=== PATIENT | female | born 1955 | race Caucasian/White ===

== ENCOUNTER 2016-08-23 17:10 | Inpatient (IN) | payer BC ==
[~2016-08-23] VITALS: Ht 170.2 cm; Wt 74.8 kg
--- NOTE | 2016-08-23 17:17 | NUR ---
bib ra from home for fall into swimming pool, (empty), neck, and back pain,+ CALOR. Placed on monitor. awaiting md order
[2016-08-23] MEDS ORDERED: LORAZEPAM 1 MG TABLET PO ONE (17:30)
--- NOTE | 2016-08-23 17:30 | NUR ---
PT TAKEN TO CT VIA HAZEL
[2016-08-23] MEDS ORDERED: LORAZEPAM 1 MG TABLET ONE (17:52)
[2016-08-23] MEDS ORDERED: SERT100T PO (18:34)
[2016-08-23] MEDS ORDERED: IV SET PRIMARY PUMP SET 1 EA INFUS.SET MC ONE (18:43)
[2016-08-23] MEDS ORDERED: ONDANSETRON HCL/PF 4 MG/2 ML VIAL ONE ×2 (18:43→19:43)
[2016-08-23] MEDS ORDERED: IV NS 0.9% 1,000 ML ONE (18:43)
[2016-08-23] MEDS ORDERED: MORPHINE SULFATE INJ 4 MG/ML DISP.SYRIN ONE (18:43)
--- NOTE | 2016-08-23 18:45 | NUR ---
giovanni #[id number] iv access. blood sample collected sent to lab
[2016-08-23 18:47] LABS: BASOPHILS # (AUTO) 0.2 /CMM (0.0-0.2); BASOPHILS % (AUTO) 1.6 % (0.0-2.0); EOSINOPHILS # (AUTO) 0.1 /CMM (0.0-0.7); EOSINOPHILS % (AUTO) 0.4 % (0.0-6.0); HEMATOCRIT 41 % (33-45); HEMOGLOBIN 13.6 g/dL (11.5-14.8); LYMPHOCYTES # (AUTO) 1.2 /CMM (0.8-4.8); LYMPHOCYTES % (AUTO) 9.3 % (20.0-44.0); MEAN CORPUSCULAR HEMOGLOBIN 31 PG (26.0-33.0); MEAN CORPUSCULAR HGB CONC 33 g/dl (31.0-36.0); MEAN CORPUSCULAR VOLUME 91 fL (82-100); MONOCYTES # (AUTO) 0.5 /CMM (0.1-1.30); NEUTROPHILS # (AUTO) 10.6 /CMM (1.8-8.9); NEUTROPHILS % (AUTO) 84.7 % (43.0-81.0); PLATELET COUNT (AUTO) 248 /CMM (150-450); RDW COEFFICIENT OF VARIATION 12.5 (11.5-15.0); RED BLOOD CELL COUNT(AUTO) 4.47 MIL/uL (4.0-5.2); WHITE BLOOD COUNT (AUTO) 12.6 K/uL (4.3-11.0)
[2016-08-23 18:56] LABS: CREATININE 0.9 mg/dL (0.6-1.3); POTASSIUM 3.6 mmol/L (3.5-5.1)
[2016-08-23 19:00] LABS: INR 0.91 (0.87-1.13); PROTHROMBIN TIME 9.5 SECS (9.5-12.7)
[2016-08-23] MEDS ORDERED: ONDANSETRON HCL/PF 4 MG/2 ML VIAL IVP ONE (19:00)
[2016-08-23] MEDS ORDERED: IV NS 0.9% 1,000 ML BAG IV ONE (19:00)
[2016-08-23] MEDS ORDERED: MORPHINE SULFATE INJ 2 MG/ML DISP.SYRIN IV ONE (19:00)
[2016-08-23 19:02] LABS: ALBUMIN 3.9 g/dL (3.4-5.0); BILIRUBIN,DIRECT 0.1 mg/dL (0.0-0.2); BILIRUBIN,TOTAL 0.3 mg/dL (0.2-1.0); TOTAL PROTEIN, SERUM 7.3 g/dL (6.4-8.2)
--- NOTE | 2016-08-23 19:02 | NUR ---
TEXTED DR. MEYERS FOR MRI APPROVAL.
[2016-08-23] MEDS ORDERED: HYDROMORPHONE 1 MG/1 ML DISP.SYRIN ONE (19:43)
[2016-08-23] MEDS ORDERED: ONDANSETRON HCL/PF 4 MG/2 ML VIAL IV ONE (20:00)
[2016-08-23] MEDS ORDERED: HYDROMORPHONE 1 MG/1 ML DISP.SYRIN IV ONE (20:00)
--- NOTE | 2016-08-23 20:22 | NUR ---
GAVE REPORT TO RAINER PRADHAN [facility] ROOM 306-[address] L[address] FRA[address] CARVAJAL ADMITTING.
--- NOTE | 2016-08-23 20:30 | NUR ---
MS RN ADMITTING NOTE RECEIVED PT COMING FROM ER VIA GURNEY, ADMITTED DUE TO LUMBAR FRACTURE, PT RECEIVED DILAUDID IN ER AND WAS EFFECTIVE CONTROLLING PAIN, FAMILY IS AT BED SIDE, MRI TO BE DONE SHORTLY, PT HAS A DENTAL IMPLANT BUT ACCORDING TO INSTRUCTOR KNITTING IT IS NOT A PROBLEM WHEN DOING MRI, CHECK LIST COMPLETED AND SIGNED, AWAITING FOR PRODUCT SALES ENGINEER, SAFETY MEASURES WILL BE MAINTAINED AT ALL TIMES, NEEDS WILL BE ANTICIPATED AND ATTENDED TO PROMPTLY.
[2016-08-23 20:35] VITALS: BP 127/70
[2016-08-23] MEDS ORDERED: ZOLPIDEM TARTRATE 5 MG TABLET PO PRN (21:00)
[2016-08-23] MEDS ORDERED: MAGNESIUM HYDROXIDE 30 ML UDC PO PRN (21:00)
[2016-08-23] MEDS ORDERED: Z GUARD REMEDY 2 OZ OINT TP PRN (21:00)
[2016-08-23] MEDS ORDERED: ACETAMINOPHEN 325 MG TABLET PO PRN (21:00)
[2016-08-23] MEDS ORDERED: MAG HYDROX/AL HYDROX/SIMETH 30 ML UDC PO PRN (21:00)
[2016-08-23] MEDS ORDERED: MORPHINE SULFATE INJ 2 MG/ML DISP.SYRIN IV PRN (21:00)
[2016-08-23 22:30] VITALS: BP 127/70
--- NOTE | 2016-08-23 23:05 | NUR ---
MRI REPORT AVAILABLE, MD CARVAJAL MADE AWARE OF RESULTS, WILL FOLLOW UP WITH RECOMMENDATION.
--- NOTE | 2016-08-24 | NUR ---
DR CARVAJAL CONSULTED WITH ORTHO, PT AWAITING TO BE SEEN BY ORTHO IN AM, PAIN WELL MANAGED WITH CURRENT PAIN MEDICATION REGIMEN, WILL CONTINUE TO MONITOR CLOSELY.
[2016-08-24] MEDS ORDERED: HYDROMORPHONE 1 MG/1 ML DISP.SYRIN ONE ×2 (00:27→05:05)
[2016-08-24] MEDS: HYDROMORPHONE 1 MG/1 ML DISP.SYRIN IV PRN ×2 (00:39→05:14)
[2016-08-24] MEDS ORDERED: LORAZEPAM INJ 2 MG/ML VIAL ONE (05:38)
[2016-08-24] MEDS: LORAZEPAM INJ 2 MG/ML VIAL IV PRN ×2 (05:45→13:18)
--- NOTE | 2016-08-24 05:45 | NUR ---
PT HAVING AN EPISODE OF ANXIETY MD MADE AWARE, ORDER FOR ATIVAN 1MG IV Q6HR RECEIVED, WILL PROVIDE TO NURSE PROMPTLY.
--- NOTE | 2016-08-24 06:30 | NUR ---
ORTHO CONSULT WILL BE DONE BY MD SANTIZO ACCORDING TO CHARGE NURSE.
--- NOTE | 2016-08-24 07:06 | NUR ---
MS RN CLOSING NOTE PT IS STABLE, CURRENTLY SLEEPING BUT EASILY AROUSED, PAIN MEDICATION EFFECTIVE, WILL ENDORSE TO INCOMING NURSE FOR BELKYS.
[2016-08-24 08:00] VITALS: BP 125/77
--- NOTE | 2016-08-24 08:00 | NUR ---
MS RN NOTES PATIENT IN BED RESTING NO SOB OR ACUTE DISTRESS NOTED. BED IN LOW LOCKED POSITION. CALL LIGHT WITHIN REACH. IV INTACT PATENT. PATIENT ALERT, ORIENTED X4 AT BEDSIDE. WILL CONTINUE TO MONITOR.
[2016-08-24 08:15] LABS: BASOPHILS % (AUTO) 0.6 % (0.0-2.0); HEMATOCRIT 37 % (33-45); HEMOGLOBIN 12.4 g/dL (11.5-14.8); LYMPHOCYTES % (AUTO) 14.2 % (20.0-44.0); MEAN CORPUSCULAR HEMOGLOBIN 31 PG (26.0-33.0); MEAN CORPUSCULAR HGB CONC 33 g/dl (31.0-36.0); MEAN CORPUSCULAR VOLUME 92 fL (82-100); MONOCYTES # (AUTO) 0.5 /CMM (0.1-1.30); MONOCYTES % (AUTO) 7.2 % (2.0-12.0); NEUTROPHILS # (AUTO) 5.6 /CMM (1.8-8.9); PLATELET COUNT (AUTO) 211 /CMM (150-450); RDW COEFFICIENT OF VARIATION 13.7 (11.5-15.0); RED BLOOD CELL COUNT(AUTO) 4.07 MIL/uL (4.0-5.2); WHITE BLOOD COUNT (AUTO) 7.2 K/uL (4.3-11.0)
[2016-08-24 08:32] LABS: CALCIUM, SERUM 8.6 mg/dL (8.5-10.1); CREATININE 0.8 mg/dL (0.6-1.3); PHOSPHORUS 3.8 mg/dL (2.5-4.9); POTASSIUM 4.1 mmol/L (3.5-5.1)
[2016-08-24] MEDS: PANTOPRAZOLE 40 MG TABLET.DR PO SCH (09:06)
[2016-08-24] MEDS: SERTRALINE HCL 50 MG TABLET PO SCH (09:06)
[2016-08-24] MEDS: ONDANSETRON HCL/PF 4 MG/2 ML VIAL IVP PRN (13:19)
[2016-08-24 16:00] VITALS: BP 132/81
[2016-08-24] MEDS: HYDROCODONE/APAP 5/325MG 1 EACH TABLET PO PRN ×2 (16:56→22:53)
--- NOTE | 2016-08-24 17:00 | NUR ---
MS RN NOTES PATIENT SEEN AND EVALUATED BY EDD WYNN ORDERS NOTED AND CARRIED OUT.
--- NOTE | 2016-08-24 19:30 | NUR ---
RN NOTES: RECEIVED ASLEEP ON BED, WITH PRESENT AT BED SIDE,PER ENDORSEMENT PATIENT LUMBO SACRAL BRACE WAS DELIVERED,KEPT IN COMFORTABLE POSITION, BED LOW AND LOCKED,FALL,SAFETY AND ASPIRATION PRECAUTION OBSERVED, CALL LIGHT WITHIN EASY REACH.
--- NOTE | 2016-08-24 19:34 | NUR ---
MS RN NOTES PATIENT IN BED RESTING NO SOB OR ACUTE DISTRESS NOTED. FAMILY AT BEDSIDE. ALL DUE MEDICATIONS ADMINISTERED . ALL NEEDS MET. WILL ENDORSE TO PM SHIFT BELKYS. PATIENT RECEIVED LUMBOSACRAL BRACE.
[2016-08-24 20:00] VITALS: BP 115/71
--- NOTE | 2016-08-24 21:00 | NUR ---
RN NOTES: AWAKE,TOOK FOOD BROUGHT BY FAMILY,KEEP COMFORTABLE IN BED, CALL LIGHT WITHIN EASY REACH.
[2016-08-24 22:00] VITALS: BP 115/71
--- NOTE | 2016-08-24 22:53 | NUR ---
RN NOTES: COMPLAINED OF GENERALIZED PAIN 09/02,BP-115/71, REQUEST TO GET NORCO NOT DILAUDID,PRN MEDICATION GIVEN, NON PHARMACOLOGIC INTERVENTION RENDERED,DIM LIT THE ROOM,AND SOFT SOUND OF TV TO MAKE HER FEEL RESTED.WARM BLANKET PROVIDED,KEPT IN SEMI FOWLERS POSITION, CALL LIGHT WITHIN EASY REACH.
--- NOTE | 2016-08-25 02:16 | NUR ---
RN NOTES: PATIENT ASLEEP IN THE NIGHT,KEPT ON CLOSE VISUAL CHECK.FALL AND SAFETY PRECAUTION OBSERVED.
--- NOTE | 2016-08-25 04:45 | NUR ---
RN NOTES: COMPLAINED OF PAIN 10/10 ON THE BACK AREA AFTER SHE WAKE UP AND PEE,REQUEST FOR HER DILAUDID AND ZOFRAN TO BE GIVEN TOGETHER,SHE FEEL NAUSEAS WHEN TAKING THE DILAUDID,NON PHARMACOLOGICAL INTERVENTION RENDERED.KEPT ON CLOSE WATCH,LATEST BP143/83 AK-81.
[2016-08-25] MEDS: HYDROMORPHONE 1 MG/1 ML DISP.SYRIN IV PRN (04:48)
[2016-08-25] MEDS: ONDANSETRON HCL/PF 4 MG/2 ML VIAL IVP PRN ×2 (04:49→10:49)
--- NOTE | 2016-08-25 06:55 | NUR ---
RN NOTES: ABLE TO REST AND SLEEP, ENDORSED TO NEXT SHIFT FOR CONTINUITY OF CARE.
[2016-08-25 08:00] VITALS: BP 141/75
--- NOTE | 2016-08-25 08:00 | NUR ---
MS RN NOTES PATIENT IN BED RESTING NO SOB OR ACUTE DISTRESS NOTED. BED IN LOW LOCKED POSITION. IV INTACT PATENT ON LEFT HAND. CALL LIGHT WITHIN REACH. WILL CONTINUE TO MONITOR.
[2016-08-25] MEDS: PANTOPRAZOLE 40 MG TABLET.DR PO SCH (09:18)
[2016-08-25] MEDS: SERTRALINE HCL 50 MG TABLET PO SCH (09:18)
--- NOTE | 2016-08-25 11:02 | NUR ---
MS RN NOTES PATIENT SEEN AMBULATING HALLWAY WITH PHYSICAL THERAPY AND WALKER.
[2016-08-25] MEDS ORDERED: ONDA4TAB5 PO (12:05)
[2016-08-25] MEDS ORDERED: HYDR-552 PO (12:05)
[2016-08-25] MEDS: HYDROCODONE/APAP 5/325MG 1 EACH TABLET PO PRN (13:07)
[2016-08-25] MEDS: LORAZEPAM INJ 2 MG/ML VIAL IV PRN (13:07)
[2016-08-25] MEDS ORDERED: ONDANSETRON HCL/PF 4 MG/2 ML VIAL IV ONE (13:30)
--- NOTE | 2016-08-25 13:30 | NUR ---
MS RN NOTES PATIENT REQUESTS EXTRA DOSE OF ZOFRAN FOR DISCHARGE, STATES THE CAR RIDE HOME AND MOVING MAKES HER NAUSEAS. INFORMED DR. CARVAJAL ORDERS OBTAINED FOR ZOFRAN 4MG NOW IV. NOTED AND CARRIED OUT.
--- NOTE | 2016-08-25 14:47 | NUR ---
MS RN NOTES PATIENT DISCHARGED HOME WITH FAMILY. IN STABLE CONDITION. MD AWARE OF ALL ABNORMAL LABS, TEST. ALL BELONGINGS ACCOUNTED FOR, BELONGING LIST SIGNED. IV REMOVED WITH MINIMAL BLEEDING. PATIENT AND FAMILY EDUCATED ON DISCHARGE INSTRUCTIONS. PRESCRIPTION PROVIDED TO PATIENT. ID BAND ALSO REMOVED. VERBALIZED UNDERSTANDING OF DISCHARGE. PATIENT ESCORTED TO CAR BY HTML DEVELOPER.
== END 2016-08-25 14:45 | disposition home or self-care (01) | DRG 552 ==
LOC: ER 17:12 → MED 20:26
PROVIDERS: ADMIT Internal Medicine; ATTEND Internal Medicine
DX: S32.019A Unspecified fracture of first lumbar vertebra, initial encounter for closed fracture (principal); S32.029A Unspecified fracture of second lumbar vertebra, initial encounter for closed fracture; S32.049A Unspecified fracture of fourth lumbar vertebra, initial encounter for closed fracture; W19.XXXA Unspecified fall, initial encounter; F32.9 Major depressive disorder, single episode, unspecified; F41.9 Anxiety disorder, unspecified; Y93.89 Activity, other specified; Y92.007 Garden or yard of unspecified non-institutional (private) residence as the place of occurrence of the external cause
CPT/HCPCS: 36415; 71010-TC; 72131-TC; 72146-TC; 72148-TC; 72192-TC; 73610-TC; 80048-TC; 80076-TC; 83735-TC; 84100-TC; 85025-TC; 85730-TC; 87081-TC; 97116-TC; 97530-TC; J1170; J2060; J2270; J2405; J7030